=== PATIENT | male | born 1965 | race Caucasian/White ===

== ENCOUNTER 2023-08-28 09:46 | Day surgery (SDC) | payer BC ==
[2023-08-28 15:04] VITALS: BP 156/75; TEMP 97.2
== END 2023-08-28 12:40 | disposition home or self-care (01) ==
LOC: CSHRAD 09:46
PROVIDERS: ATTEND Neurological Surgery
PROC: B03 Imaging, Central Nervous System, Magnetic Resonance Imaging (MRI) (ICD-10-PCS; principal; 2023-08-28)
DX: M48.062 Spinal stenosis, lumbar region with neurogenic claudication (principal); M47.26 Other spondylosis with radiculopathy, lumbar region
CPT/HCPCS: 62304; 72132